=== PATIENT | male | born 2000 | race Caucasian/White ===

== ENCOUNTER 2024-07-13 15:03 | Emergency (ER) | payer OTHER ==
[2024-07-13] MEDS: Magnesium Sulfate 2 GM/50 mL 2 GM in Premix Bag 1 BAG IV ONE (15:56)
[2024-07-13] MEDS: Acetaminophen 325 MG Tab PO ONE (15:56)
[2024-07-13] MEDS: Sodium Chloride 0.9% 1,000 ML IV SCH (15:56)
[2024-07-13] MEDS: Metoclopramide 10 MG/2 ML SDV IVPUSH ONE (15:56)
== END 2024-07-13 17:06 | disposition home or self-care (01) ==
LOC: MW.ED 15:03
DX: R51.9 Headache, unspecified (principal)
CPT/HCPCS: 70450; 96361; 96365; 96375; 99284; A9270; J1100; J2765; J3475; J7030; 99283